=== PATIENT | female | born 1995 | race Caucasian/White ===

== ENCOUNTER 2024-02-04 17:09 | Emergency (ER) | payer OTHER, SELFPAY ==
[2024-02-04 17:27] VITALS: BP 129/94; PULSE 100; RESP 18; TEMP 36.8; O2SAT 98; BMI 22.3
--- NOTE | 2024-02-04 18:22 | CTR_ITS ---
PROCEDURE INFORMATION: Exam: CT Head Without Contrast Exam date and time: 02/04/2024 7:17 PM Age: 28 years old Clinical indication: Patient HX: C/O transient dizziness occurring over the last two months. TECHNIQUE: Imaging protocol: Computed tomography of the head without contrast. Axial, coronal and sagittal reformatted images were created and reviewed. Radiation optimization: All CT scans at this facility use at least one of these dose optimization techniques: automated exposure control; mA and/or kV adjustment per patient size (includes targeted exams where dose is matched to clinical indication); or iterative reconstruction. COMPARISON: No relevant prior studies available. RADIATION DOSE METRICS: Total DLP (mGy-cm): 936.78 FINDINGS: Brain: No CT evidence of acute intracranial hemorrhage or acute territorial infarction. No significant mass effect or midline shift. Basal cisterns patent. Cerebral ventricles: Normal in size and configuration. Paranasal sinuses: Unremarkable. No fluid levels. Mastoid air cells: Grossly unremarkable. Bones: Unremarkable. No acute fracture. Soft tissues: Grossly unremarkable. CT/CT head wo con* [id number] IMPRESSION: No CT evidence of acute intracranial pathology.
--- NOTE | 2024-02-04 18:32 | W.ED.DIZZY ---
HPI - Dizziness General: Chief Complaint: Dizziness Stated Complaint: Dizziness Time Seen by Provider: 02/04/24 18:07 History of Present Illness: HPI Narrative: 28-year-old female presents with vertiginous dizziness. She has had the symptoms off for 2 months. She says for the last 3 days it has been worse. She has not taken any medicines. She was seen at an outside facility, and told she did not have any neurological problems, and no imaging was done. She has seen her doctor as well, but has not had any treatment. She denies any language problems, specific vision problems, weakness, paresthesias, etc. Dizziness is worse with movement. Related Data Previous Rx's Medication Instructions Recorded meclizine 25 mg tablet 25 mg PO TID #60 tabs 02/04/24 Allergies Allergy/AdvReac Type Severity Reaction Status Date / Time No Known Allergies Allergy Verified 02/04/24 17:31 [facility] ED Female Reproductive History: Date of last menstrual period: 02/03/24 Physical Exam Const: COMMON NORMALS: no acute distress and alert GENERAL APPEARANCE: cooperative; not ill appearing and not frail appearing HENMT: COMMON NORMALS: normocephalic, atraumatic and Normal external nose present HEAD & SCALP: normocephalic and atraumatic FACE & SINUS: normal facial exam and face symmetric NOSE: Normal external nose present Eye: COMMON NORMALS: Equal, round and reactive pupils present and EOMs intact bilaterally PUPIL: Yes Equal, round and reactive pupils present Neck/C-Spine: GENERAL: Yes trachea midline Chest: CHEST: Yes Symmetrical chest wall rise Resp: COMMON NORMALS: normal respiratory effort, No retractions, No use of accessory muscles and clear to auscultation bilaterally AUSCULTATION: clear to auscultation bilaterally Cardio: COMMON NORMALS: regular rate and regular rhythm RATE: regular rate RHYTHM: regular rhythm GI: COMMON NORMALS: Normal to inspection, nondistended, normoactive bowel sounds present Extremity: COMMON NORMALS: no pedal edema Neuro: OLI COMA SCALE: document GCS findings Oli coma scale eye opening: Spontaneous [place] coma scale verbal response: Orientated Oli coma scale motor response: Obey commands [place] coma scale total score: 15 SENSORIUM/ORIENTATION: Yes alert CRANIAL NERVES: Yes CN normal except as noted COORDINATION/BALANCE: [id number] test normal and ljpv-xz-[id number] test normal SPEECH: speech normal SENSORY EXAM: Yes extremities (intact) MOTOR EXAM: Pronator motor function not present, Normal motor muscle tone present throughout, Motor abnormalities not present and No Motor fasciculations present COORDINATION: ckynsk-bi-wzva test normal and mkvq-vu-[id number] test normal Psych: COMMON NORMALS: speech normal SPEECH: Yes normal speech Skin: COMMON NORMALS: no rashes or lesions noted GENERAL SKIN EXAM: no rashes or lesions noted Course Vital Signs: Vital signs: Vital Signs Temperature 98.2 F 02/04/24 17:27 Pulse Rate 74 02/04/24 21:03 Respiratory Rate 20 H 02/04/24 21:03 Blood Pressure 116/58 02/04/24 21:03 Pulse Oximetry 98 02/04/24 21:03 Oxygen Delivery Me thod Room Air 02/04/24 17:27 MDM - Dizziness Medical Decision Making Patient tells me she has a history of tinnitus in the left ear. She denies definite history of hearing loss although she has never had her hearing tested. She has vertigo symptoms. Her head CT is normal. Laboratory is normal. She does have some blood in her urine, but she is on her period. She will be discharged. Meclizine. She may need referral to audiology or ENT surgery. Vestibular therapy may be helpful as well. Lab Data 02/04/24 18:37 02/04/24 18:[address] 02/04/24 18:22 IMPRESSION: No CT evidence of acute intracranial pathology. Laboratory Results WBC 9.69 10^3/uL (3.29-11.43) 02/04/24 18:37 RBC 4.88 10^6/uL (3.85-5.65) 02/04/24 18:37 Hgb 14.80 g/dL (11.27-16.99) 02/04/24 18:37 Hct 45.4 % (36-47) 02/04/24 18:37 MCV 93.0 fl (85-98) 02/04/24 18:37 MCH 30.3 pg (27-33) 02/04/24 18:37 MCHC 32.6 g/dL (30-55) 02/04/24 18:37 RDW 12.0 % (12.1-15.1) L 02/04/24 18:37 Plt Count 244 10^3/cmm (157-399) 02/04/24 18:37 MPV 11.3 fL (7.4-10.4) H 02/04/24 18:37 Neut % (Auto) 58.9 % 02/04/24 18:37 Lymph % (Auto) 33.2 % 02/04/24 18:37 [place] % (Auto) 4.5 % 02/04/24 18:37 Eos % (Auto) 2.6 % 02/04/24 18:37 Baso % (Auto) 0.5 % 02/04/24 18:37 Neut # (Auto) 5.70 10^3/uL (1.8-7.7) 02/04/24 18:37 Lymph # (Auto) 3.2 10^3/uL (0.8-4.8) 02/04/24 18:37 [place] # (Auto) 0.4 10^3/uL (0.2-0.9) 02/04/24 18:37 Eos # (Auto) 0.3 10^3/uL (0.0-0.8) 02/04/24 18:37 Baso # (Auto) 0.1 10^3/uL (0.0-0.1) 02/04/24 18:37 Nucleated RBC % (auto) 0 % 02/04/24 18:37 Nucleated RBCs # 0.0 /100WBC 02/04/24 18:37 Sodium 138 mmol/L (136-145) 02/04/24 18:37 Potassium 3.8 mmol/L (3.5-5.1) 02/04/24 18:37 Chloride 104 mmol/L (98-107) 02/04/24 18:37 Carbon Dioxide 24 mmol/L (22-29) 02/04/24 18:37 Anion Gap 13.8 (5-19) 02/04/24 18:37 BUN 7 mg/dL (6-20) 02/04/24 18:37 Creatinine 0.7 mg/dL (0.5-0.9) 02/04/24 18:37 GFR Calculation 98.9 mL/min (90-130) 02/04/24 18:37 Glucose 94 mg/dL (65-115) 02/04/24 18:37 Calculated Osmolality 284 mOsm/kg (285-295) L 02/04/24 18:37 Calcium 9.1 mg/dL (8.5-10.5) 02/04/24 18:37 Phosphorus 3.2 mg/dL (2.5-4.5) 02/04/24 18:37 Magnesium 2.0 mg/dL (1.7-2.3) 02/04/24 18:37 Total Bilirubin 0.2 mg/dL (0.15-1.2) 02/04/24 18:37 AST 24 U/L (0-32) 02/04/24 18:37 ALT 18 U/L (0-33) 02/04/24 18:37 Alkaline Phosphatase 65 U/L (35-105) 02/04/24 18:37 Total Protein 6.7 g/dL (6.6-8.7) 02/04/24 18:37 Albumin 4.7 g/dL (3.5-5.2) 02/04/24 18:37 Globulin 2.0 g/dL (1.3-4.6) 02/04/24 18:37 HCG, Qual Negative (Negative) 02/04/24 18:37 Urine Color Yellow (Yellow) 02/04/24 18:18 Urine Appearance Clear (CLEAR) 02/04/24 18:18 Urine pH 6.5 (5-7) 02/04/24 18:18 Ur Specific [place] 1.004 (1.005-1.030) L 02/04/24 18:18 Urine Protein Negative (Negative) 02/04/24 18:18 Urine Glucose (UA) Negative (Normal) 02/04/24 18:18 Urine Ketones Negative (Negative) 02/04/24 18:18 Urine Blood 3+ (Negative) A 02/04/24 18:18 Urine Nitrate Negative (Negative) 02/04/24 18:18 Urine Bilirubin Negative (Negative) 02/04/24 18:18 Urine Urobilinogen 0.2 mg/dL (Negative) 02/04/24 18:18 Ur Leukocyte Esterase Negative (Negative) 02/04/24 18:18 Urine RBC 3-5 /hpf (0-2) 02/04/24 18:18 Urine WBC 0-5 /hpf (0-5) 02/04/24 18:18 Ur Squamous Epith Cells 0-5 /hpf (0-5) 02/04/24 18:18 Amorphous Sediment Not Reportable 02/04/24 18:18 Urine Bacteria None seen /hpf (NONE) 02/04/24 18:18 Hyaline Casts 0-4 /lpf H 02/04/24 18:18 All radiology interpretation(s) finalized by discharge Discharge Plan Discharge Patient Disposition: Home Clinical Impression: Vertigo Condition: Stable Prescriptions: New meclizine 25 mg tablet 25 mg PO TID Qty: 60 0RF Discharge Orders: Discharge ED (Routine); Ordered 02/04/24 Ordered By: Roland Rosas Referrals: Austin Duarte MD [Physician] - 7-10 days Beverly Calvillo APRN [Primary Care Provider] - 1-3 days Patient Instructions: Vertigo (ED), Opioid Safety, Pain Management Activity Restrictions/Additional Instructions: You may give yourself a trial medication to see if it helps. You have been given the number above for ENT surgery. He may call for an appointment. Vestibular therapy may also help. Return for new symptoms such as language problems, vision problems, weakness, other concerning symptoms. Follow-up with your doctor next week. Coding Level of Care Code ED Laundry Aid for Gurdeep Morillo
[2024-02-04 18:44] LABS: Basophils # 0.1 10^3/uL (0.0-0.1); Basophils % 0.5 %; Eosinophils # 0.3 10^3/uL (0.0-0.8); Eosinophils % 2.6 %; Hematocrit 45.4 % (36-47); Lymphocytes # 3.2 10^3/uL (0.8-4.8); Lymphocytes % 33.2 %; Mean Corpuscular HGB Conc 32.6 g/dL (30-55); Mean Corpuscular Hemoglobin 30.3 pg (27-33); Mean Platelet Volume 11.3 fL (7.4-10.4); Monocytes # 0.4 10^3/uL (0.2-0.9); Monocytes % 4.5 %; Neutrophils % 58.9 %; Nucleated Red Blood Cells % 0 %; Platelet Count 244 10^3/cmm (157-399); Red Blood Count 4.88 10^6/uL (3.85-5.65); White Blood Count 9.69 10^3/uL (3.29-11.43)
[2024-02-04 19:04] LABS: Bilirubin Urine Negative (Negative); Blood Urine 3+ (Negative); Glucose Urine UA Negative (Normal); Ketones Urine Negative (Negative); Leukocyte Esterase Urine Negative (Negative); Nitrate Urine Negative (Negative); Protein Urine Negative (Negative); Specific Gravity, Urine 1.004 (1.005-1.030); Urine Appearance Clear (CLEAR); Urine Color Yellow (Yellow); Urobilinogen Urine 0.2 mg/dL (Negative); pH Urine 6.5 (5-7)
[2024-02-04 19:04] LABS: Alanine Aminotransferase 18 U/L (0-33); Albumin Level 4.7 g/dL (3.5-5.2); Alkaline Phosphatase 65 U/L (35-105); Anion Gap 13.8 (5-19); Aspartate Amino Transferase 24 U/L (0-32); Blood Urea Nitrogen 7 mg/dL (6-20); Calcium 9.1 mg/dL (8.5-10.5); Carbon Dioxide 24 mmol/L (22-29); Chloride 104 mmol/L (98-107); Creatinine Clr Calc Pharmacy 105.5949; Glomerular Filtration Rate 98.9 mL/min (90-130); Glucose 94 mg/dL (65-115); Osmolality Calculated 284 mOsm/kg (285-295); Phosphorus 3.2 mg/dL (2.5-4.5); Potassium 3.8 mmol/L (3.5-5.1); Sodium 138 mmol/L (136-145); Total Bilirubin 0.2 mg/dL (0.15-1.2); Total Protein 6.7 g/dL (6.6-8.7)
[2024-02-04 19:07] LABS: HCG, Serum Qual Negative (Negative)
[2024-02-04 19:10] LABS: Add Urine Microscopic? YES; Bacteria Urine None Seen /hpf; Hyaline Casts Urine 0-4 /lpf; Squamous Epithelial Cell Urine 0-5 /hpf (0-5); WBC Urine 0-5 /hpf (0-5)
[2024-02-04 20:33] VITALS: BP 116/68; PULSE 62; RESP 20; O2SAT 95
[2024-02-04 21:03] VITALS: BP 116/58; PULSE 74; RESP 20; O2SAT 98
== END 2024-02-04 21:04 | disposition home or self-care (01) ==
PROVIDERS: Emergency Provider Emergency Medicine; PCP Nurse Practitioner Family
DX: R42 Dizziness and giddiness (principal)
CPT/HCPCS: 36415; 70450; 80053; 81001; 83735; 84100; 84703; 85025; 99284